=== PATIENT | male | born 1940 | race Caucasian/White ===

== ENCOUNTER → 2016-09-28 | Outpatient (REF) | payer MEDICARE, OTHER | LOC: M LAB REF 11:23 | PROVIDERS: ATTEND Internal Medicine | DX: Z01.818 Encounter for other preprocedural examination (principal); M51.37 Other intervertebral disc degeneration, lumbosacral region ==

== ENCOUNTER → 2017-08-29 | Outpatient (CLI) | payer MEDICARE, OTHER ==
[2017-08-29 15:07] LABS: HEMATOCRIT 36.6 % (42.0-52.0); HEMOGLOBIN 11.9 g/dl (13.5-17.5); MEAN CORPUSCULAR HGB CONC 32.5 g/dl (32.0-36.5); MEAN CORPUSCULAR VOLUME 95.3 fl (80.0-96.0); PLATELET COUNT, AUTOMATED 194 10^3/uL (150-450); RED BLOOD COUNT 3.84 10^6/uL (4.30-6.10); RED CELL DISTRIBUTION WIDTH 14.2 % (11.5-14.5); WHITE BLOOD COUNT 4.5 10^3/uL (4.0-10.0)
[2017-08-29 15:18] LABS: INR 0.94; PROTHROMBIN TIME 12.6 SECONDS (12.4-14.5)
[2017-08-29 15:19] LABS: PARTIAL THROMBOPLASTIN TIME 37.1 SECONDS (26.8-37.9)
[2017-08-29 15:29] LABS: CREATININE FOR GFR 0.94 MG/DL (0.70-1.30); GLOMERULAR FILTRATION RATE > 60.0 (>42)
[2017-08-29 15:29] LABS: BLOOD UREA NITROGEN 15 MG/DL (7-18)
== END ==
LOC: M LAB 14:46
DX: Z47.89 Encounter for other orthopedic aftercare (principal); Z79.01 Long term (current) use of anticoagulants
CPT/HCPCS: 82565

== ENCOUNTER → 2017-09-05 | Outpatient (CLI) | payer MEDICARE, OTHER ==
[~2017-09-05] MED LIST: ISOVUE-300 61% 50ML VIAL (Q9967) As Ordered; ISOVUE-M 300 61% 15ML VIAL (Q9967) As Ordered; LIDOCAINE 1% MDV 20ML VIAL As Ordered
== END ==
LOC: M RADPRO 07:16
DX: M54.5 Low back pain (principal)
CPT/HCPCS: 62305

== ENCOUNTER → 2018-11-01 | Outpatient (CLI) | payer MEDICARE, BC, OTHER ==
--- NOTE | 2018-11-04 14:26 | REPVR ---
EXAM: CT Lumbar Spine Without Contrast EXAM DATE/TIME: 11/01/2018 5:09 PM CLINICAL HISTORY: 77 years old, male; Low back pain; Additional info: Lower back pain TECHNIQUE: Imaging protocol: Computed tomography images of the lumbar spine without contrast. Coronal and sagittal reformatted images were created and reviewed. Radiation optimization: All CT scans at this facility use at least one of these dose optimization techniques: automated exposure control; mA and/or kV adjustment per patient size (includes targeted exams where dose is matched to clinical indication); or iterative reconstruction. COMPARISON: No relevant prior studies available. FINDINGS: Evaluation is limited by beam hardening artifact in association with surgical hardware. Tubes, catheters and devices: Neuromuscular stimulation device. Vertebrae: Laminectomy, pedicle screw fixation, and osseous fusion extending from L1-L5. Mild retrolisthesis of L1 on L2 and grade 1 anterolisthesis of L4 on L5. Mild sclerosis of the T12 and L1 vertebral bodies. Mild scoliosis. Discs/Spinal canal/Neural foramina: Degenerative change, disc bulging, and vertebral endplate irregularity. Note that assessment of disc, spinal cord, and nerve root pathology is limited in the absence of intrathecal contrast. Kidneys and ureters: Incompletely visualized 4.6 cm right renal cyst. Stomach and bowel: Prominent stool. Vasculature: Prominent vascular calcification. Soft tissues: Unremarkable appearance of the paraspinous soft tissues. IMPRESSION: 1. Laminectomy, pedicle screw fixation, and osseous fusion extending from L1-L5. 2. Degenerative change, disc bulging, and vertebral endplate irregularity. 3. Additional findings as described above. Electronically signed by: Tye Garcia On 11/04/2018 14:25:55 PM
== END ==
LOC: M RAD 16:51
PROVIDERS: ATTEND Orthopaedic Surgery
DX: M54.5 Low back pain (principal); M99.83 Other biomechanical lesions of lumbar region; M48.061 Spinal stenosis, lumbar region without neurogenic claudication; Z98.1 Arthrodesis status

== ENCOUNTER → 2021-01-04 | Outpatient (CLI) | payer MEDICARE, BC, OTHER ==
--- NOTE | 2021-01-04 09:34 | REP ---
INDICATION: RADICULOPATHY. COMPARISON: Comparison study November 01, 2018. TECHNIQUE: Helical scanning is acquired and 4 mm axial images re-formatted. Coronal and sagittal MPR images are provided. FINDINGS: The patient is again noted to be status post transpedicle screw dorsal connecting duarte fixation bilaterally at each level from L1 through L5. Laminectomies have been performed at these levels as well. There is a dorsal column stimulator device in place entering the spinal canal at the T11-T12 interlaminar space and ascending in the distal thoracic epidural space dorsally to the top of the imaging field of view. These findings appear to be unchanged. The metallic components of the fusion hardware cast spray artifact which does interfere to some degree with image quality. There is extensive postoperative granulation tissue in the extra spinal soft tissues dorsally at without abnormal fluid collection also unchanged. There is bone graft fusion of the posterior elements as well bilaterally at each of these levels. Incidental findings include a fairly large hiatal hernia, a 4 cm cyst in the upper pole the right kidney, and extensive vascular calcification. Normal caliber aorta. The right renal cyst is unchanged. The T12-L1 disc is narrowed with mild posterior osteophytic ridging unchanged. At L1-L2 the disc is ankylosed. There is minimal retrolisthesis. No change from comparison study. Mild bilateral bony neural foraminal narrowing is again seen also unchanged at the L1-2 level. At L2-L3, there is disc narrowing. The disc appears fused posteriorly. Mild stable posterior osteophytic ridging is observed. No bony neural foraminal narrowing is seen. No new finding. At L3-4, the posterior aspect of the disc is ankylosed as before. No neural foraminal narrowing is seen. No change observed from comparison study. At L4-5, there is disc space narrowing with some disc material calcification. There is a stable mild grade 1 4 mm L4-5 spondylolisthesis. No bony foraminal narrowing is seen. No change from comparison study. At L5-S1, there is osteoarthritic facet hypertrophy bilaterally and minimal diffuse disc bulging is again noted. No bony neural foraminal narrowing is seen. No evidence of disc protrusion. IMPRESSION: Patient is status post laminectomy and posterior element fusion L1 through L5 as before. No observable changed from November 01, 2018. <Electronically signed by Ottoniel Wong > 01/04/21 [id number]
== END ==
LOC: M RAD 07:53
PROVIDERS: ATTEND Psychiatry & Neurology Neurology
DX: M51.16 Intervertebral disc disorders with radiculopathy, lumbar region (principal); M45.6 Ankylosing spondylitis lumbar region; K44.9 Diaphragmatic hernia without obstruction or gangrene; Z98.1 Arthrodesis status

== ENCOUNTER → 2021-08-17 | Outpatient (REF) | payer MEDICARE, OTHER ==
[2021-08-17 18:24] LABS: APPEARANCE, URINE HAZY (CLEAR); BACTERIA, URINE AUTO NEGATIVE (NEGATIVE); BILIRUBIN, URINE AUTO NEGATIVE (NEGATIVE); BLOOD, URINE BLOOD NEGATIVE (NEGATIVE); CALCIUM OXALATE CRYSTALS SMALL; COLOR, URINE YELLOW (YELLOW); GLUCOSE, URINE (UA) AUTO NEGATIVE (NEGATIVE); KETONE, URINE AUTO NEGATIVE (NEGATIVE); LEUKOCYTE ESTERASE, URINE AUTO NEGATIVE (NEGATIVE); MUCUS, URINE SMALL (NEGATIVE); NITRITE, URINE AUTO NEGATIVE (NEGATIVE); PROTEIN, URINE AUTO NEGATIVE (NEGATIVE); RBC, URINE AUTO 1 /HPF (0-3); SPECIFIC GRAVITY URINE AUTO 1.028 (1.002-1.035); SQUAMOUS EPITHELIAL CELL UR AU 0 /HPF (0-6); WBC, URINE AUTO 0 /HPF (0-3)
== END ==
LOC: M SMT 17:00
PROVIDERS: ATTEND Urology
DX: R39.9 Unspecified symptoms and signs involving the genitourinary system (principal)